=== PATIENT | female | born 1975 | race Caucasian/White ===

== ENCOUNTER 2018-05-08 22:15 | Emergency (ER) | payer BC, OTHER ==
[~2018-05-08] VITALS: Ht 157.5 cm; Wt 89.0 kg
[~2018-05-08 22:15] MED LIST: LAMO25TA62 PO
[2018-05-08 22:23] VITALS: BP 133/52
== END 2018-05-09 01:37 | disposition left against medical advice (07) ==
LOC: ER 22:16
DX: J34.89 Other specified disorders of nose and nasal sinuses (principal); Z53.21 Procedure and treatment not carried out due to patient leaving prior to being seen by health care provider